=== PATIENT | male | born 1975 | race Caucasian/White ===

== ENCOUNTER → 2016-06-16 | Outpatient (CLI) | payer OTHER ==
--- NOTE | 2016-06-17 14:35 | CR ---
EXAM DATE: 06/16/16 PATIENT'S AGE: 40 Patient: ELIZA JUSTICE Facility: [place], [place] Site . Site : 1975 Study: XRay Shoulder Right [id number]/21/2017 5:11:26 PM Ordering Physician: Quirino Alexandra Final Report: HISTORY: Shoulder pain. Comparison: None. Findings: Moderate degenerative changes in the glenohumeral joint space and mild subacromial joint space narrowing. Degenerative osteophyte changes in the acromioclavicular joint with under hanging osteophytes. No evidence for acute fracture or dislocation. Dictated by Shira Beal MD @ Jun 17 2016 10:39AM (Electronic Signature) Report Signed by Proxy and Original Signed Document filed in the Medical Record. MTDD
--- NOTE | 2016-06-17 14:36 | CR ---
EXAM DATE: 06/16/16 PATIENT'S AGE: 40 Patient: ELIZA JUSTICE Facility: [place], [place] Site . Site : 1975 Study: XRay Spine Lumbar [id number]/21/2017 5:13:45 PM Ordering Physician: Quirino Alexandra Final Report: HISTORY: Back and neck pain. Comparison: None. Findings: Mild multilevel degenerative disc changes. No evidence for acute fracture or dislocation. Soft tissues within normal. Dictated by Shira Beal MD @ Jun 17 2016 10:41AM (Electronic Signature) Report Signed by Proxy and Original Signed Document filed in the Medical Record. [facility]
--- NOTE | 2016-06-17 14:37 | CR ---
EXAM DATE: 06/16/16 PATIENT'S AGE: 40 Patient: ELIZA JUSTICE Facility: [place], [place] Site . Site : 1975 Study: XRay Spine Cervical [id number]/21/2017 5:14:21 PM Ordering Physician: Quirino Alexandra Final Report: HISTORY: Cervical pain. Comparison: None. Findings: Mild multilevel degenerative disc changes in the cervical spine. No evidence for acute fracture or dislocation. Vertebral body and disc space heights are preserved. Soft tissues are within normal. Dictated by Shira Beal MD @ Jun 17 2016 10:42AM (Electronic Signature) Report Signed by Proxy and Original Signed Document filed in the Medical Record. [facility]TDD
== END ==
LOC: MW.CHRC 09:21
PROVIDERS: ATTEND Family Medicine
DX: M25.511 Pain in right shoulder (principal); M54.2 Cervicalgia; R53.83 Other fatigue; Z78.9 Other specified health status
CPT/HCPCS: 72040; 72040-26; 72100; 72100-26; 73030-26-RT; 73030-RT

== ENCOUNTER → 2016-06-23 | Outpatient (CLI) | payer OTHER | LOC: MW.CHRC 07:48 | PROVIDERS: ATTEND Family Medicine | DX: Z72.51 High risk heterosexual behavior (principal) | CPT/HCPCS: 36415; 86592; 87389 ==

== ENCOUNTER 2017-08-05 15:22 | Emergency (ER) | payer OTHER ==
[2017-08-05] MEDS ORDERED: Lidocaine 1% 20 ML MDV INJECT ONE (15:43)
[2017-08-05] MEDS ORDERED: Bupivacaine 0.5% 10 ML SDV INJECT ONE (15:46)
[2017-08-05] MEDS ORDERED: ceFAZolin 1 GM Vial IM ONE (15:46)
--- NOTE | 2017-08-05 15:59 | EDM.PDOC ---
ED HPI GENERAL MEDICAL PROBLEM - General Chief Complaint: Laceration Stated Complaint: LEFT PINKIE FINGER LACERATION Time Seen by Provider: 08/05/17 15:23 Source of Information: Reports: Patient History Limitations: Reports: No Limitations - History of Present Illness INITIAL COMMENTS - FREE TEXT/NARRATIVE: History of present illness: []Patient cut his left small finger on a installer metal flooring prior to arrival. Review of systems: As per history of present illness and below otherwise all systems reviewed and negative. Past medical history: As per history of present illness and as reviewed below otherwise noncontributory. Surgical history: As per history of present illness and as reviewed below otherwise noncontributory. Social history: No reported history of drug or alcohol abuse. Family history: As per history of present illness and as reviewed below otherwise noncontributory. Physical exam: General: Well developed, well nourished in NAD HEENT: Atraumatic, normocephalic, pupils reactive, negative for conjunctival pallor or scleral icterus, mucous membranes moist, throat clear, neck supple, nontender, trachea midline. Lungs: Clear to auscultation, breath sounds equal bilaterally, chest nontender. Heart: S1S2, regular, negative for clicks, rubs, or JVD. Abdomen: Soft, nondistended, nontender. Negative for masses or hepatosplenomegaly. Negative for costovertebral tenderness. Pelvis: Stable nontender. Genitourinary: Deferred. Rectal: Deferred. Extremities: Atraumatic, negative for cords or calf pain. Neurovascular unremarkable. Neuro: Awake, alert, oriented. Cranial nerves II through XII unremarkable. Cerebellum unremarkable. Motor and sensory unremarkable throughout. Exam nonfocal. Diagnostics: []X-ray showing a fracture of proximal fracture of the distal phalanx involving the articular surface Therapeutics: []Ancef given, digital block and sutured laceration Impression: []Open fracture laceration of small left finger Plan: []Keflex, tramadol, follow-up with Dr. Caba in 2 weeks Definitive disposition and diagnosis as appropriate pending reevaluation and review of above. Left 5-Little finger Pain Score (Numeric/FACES): 10 - Related Data Allergies Allergy/AdvReac Type Severity Reaction Status Date / Time Penicillins Allergy Rash Verified 08/05/17 15:56 Home Meds: Home Meds Cephalexin [Keflex] 500 mg PO Q8H #21 cap 08/05/17 [Rx] traMADol HCl [Tramadol HCl] 50 mg PO Q6H PRN #16 tablet 08/05/17 [Rx] ED ROS GENERAL - Review of Systems Review Of Systems: See Below (See history of present illness) ED EXAM, SKIN/RASH Exam: See Below (See history of present illness) ED SKIN PROCEDURES - Laceration/Wound Repair Left Finger Lac/Wound length In cm: 3 Appearance: Subcutaneous Anesthetic Type: Digital Local Anesthesia - Lidocaine (Xylocaine): 1% Plain Local Anesthesia - Bupivicaine (Marcaine): 0.5% Plain Local Anesthetic Volume: 2cc Skin Prep: Chlorhexidine (Hibiciens), Saline Closed with: Sutures Suture Size: 4-0 Drain Placement: No Sterile Dressing Applied: Nurse Tetanus Status Addressed: Yes Complications: No Course - Vital Signs Last Recorded V/S: Last Vital Signs Temp 98.9 F 08/05/17 15:51 Pulse 65 08/05/17 15:51 Resp 22 H 08/05/17 15:51 BP 116/93 H 08/05/17 15:51 Pulse Ox 98 08/05/17 15:51 - Orders/Labs/Meds Orders: Active Orders 24 hr Category Date Time Status Communication Order [RC] STAT Care 08/05/17 16:00 Active Splinting [RC] ASDIRECTED Care 08/05/17 16:35 Active Meds: Medications Discontinued Medications Generic Name Dose Route Start Last Admin Trade Name Freq PRN Reason Stop Dose Admin Bacitracin 1 dose 08/05/17 16:36 08/05/17 16:42 Bacitracin Oint 1 Gm TOP 08/05/17 16:37 1 dose ONETIME ONE Administration Bupivacaine HCl 10 ml 08/05/17 15:46 08/05/17 15:58 Sensorcaine-Mpf 0.5% INJECT 08/05/17 15:47 10 ml ONETIME ONE Administration Cefazolin Sodium 1 gm 08/05/17 15:46 08/05/17 15:53 Ancef IM 08/05/17 15:47 1 gm ONETIME ONE Administration Lidocaine HCl 20 ml 08/05/17 15:43 08/05/17 15:58 Xylocaine 1% INJECT 08/05/17 15:44 20 ml ONETIME ONE Administration Departure - Departure Time of Disposition: 16:51 Disposition: Home, Self-Care 01 Condition: Good Clinical Impression: Open fracture of finger of left hand Qualifiers: Encounter type: initial encounter Finger: little finger Phalanx: distal Fracture alignment: displaced Qualified Code(s): S62.637B - Displaced fracture of distal phalanx of left little finger, initial encounter for open fracture - Discharge Information Prescriptions: Cephalexin [Keflex] 500 mg PO Q8H #21 cap traMADol HCl [Tramadol HCl] 50 mg PO Q6H PRN #16 tablet PRN Reason: Pain Referrals: PCP,None [Primary Care Provider] - Gena Caba MD [Physician] - 2 Weeks () Forms: ED Department Discharge Additional Instructions: The following information is given to patients seen in the emergency department who are being discharged to home. This information is to outline your options for follow-up care. We provide all patients seen in our emergency department with a follow-up referral. The need for follow-up, as well as the timing and circumstances, are variable depending upon the specifics of your emergency department visit. If you don't have a primary care physician on staff, we will provide you with a referral. We always advise you to contact your personal physician following an emergency department visit to inform them of the circumstance of the visit and for follow-up with them and/or the need for any referrals to a consulting specialist. The emergency department will also refer you to a specialist when appropriate. This referral assures that you have the opportunity for follow-up care with a specialist. All of these measure are taken in an effort to provide you with optimal care, which includes your follow-up. Under all circumstances we always encourage you to contact your private physician who remains a resource for coordinating your care. When calling for follow-up care, please make the office aware that this follow-up is from your recent emergency room visit. If for any reason you are refused follow-up, please contact the [facility] Emergency Department at and asked to speak to the emergency department charge nurse. Keep wound dry for 24 hours, wear splint, follow-up with Dr. Caba sutures out in 10-14 days take Keflex as directed and tramadol for pain and also use Motrin or Tylenol or ice. - My Orders Last 24 Hours: My Active Orders 08/05/17 16:00 Communication Order [RC] STAT 08/05/17 16:35 Splinting [RC] ASDIRECTED - Assessment/Plan Last 24 Hours: My Active Orders 08/05/17 16:00 Communication Order [RC] STAT 08/05/17 16:35 Splinting [RC] ASDIRECTED
--- NOTE | 2017-08-05 16:27 | CR ---
EXAMINATION: Right hand, fifth digit HISTORY: Injury COMPARISON: None TECHNIQUE: 3 views FINDINGS/IMPRESSION: There is a comminuted intra-articular fracture distal fifth phalanx extending in to the PIP joint, mildly displaced and angulated. Overlying soft tissue laceration is noted extending to the fracture suggesting an open component. The remaining visualized osseous structures and joint spaces appear intact.
[2017-08-05] MEDS ORDERED: Bacitracin Oint 1 GM U/D Packet TOP ONE (16:36)
== END 2017-08-05 17:08 | disposition home or self-care (01) ==
LOC: MW.ED 15:22
DX: S62.637B Displaced fracture of distal phalanx of left little finger, initial encounter for open fracture (principal); Z88.0 Allergy status to penicillin; Z23 Encounter for immunization; W29.0XXA Contact with powered kitchen appliance, initial encounter
CPT/HCPCS: 12002; 73140; 90471; 99283; J0690

== ENCOUNTER 2018-06-30 12:00 | Emergency (ER) | payer SELFPAY ==
[2018-06-30] MEDS ORDERED: Ibuprofen 800 MG Tab PO ONE (12:13)
[2018-06-30] MEDS ORDERED: Albuterol/Ipratropium 3.0-0.5 MG/3 ML Neb Soln NEB ONE (12:26)
[2018-06-30] MEDS ORDERED: Sodium Chloride 0.9% 1,000 ML IV ONE (12:27)
[2018-06-30] MEDS ORDERED: Ketorolac 30 MG/ML SDV IVPUSH ONE (12:27)
--- NOTE | 2018-06-30 13:00 | EDM.PDOC ---
ED HPI GENERAL MEDICAL PROBLEM - General Chief Complaint: General Stated Complaint: RUSHED TO THE BACK Time Seen by Provider: 06/30/18 12:01 Source of Information: Reports: Patient History Limitations: Reports: No Limitations - History of Present Illness INITIAL COMMENTS - FREE TEXT/NARRATIVE: History of present illness: []Patient started feeling ill last night with body aches, fevers, chills, sore throat, congestion, weakness and low back pain. Review of systems: As per history of present illness and below otherwise all systems reviewed and negative. Past medical history: As per history of present illness and as reviewed below otherwise noncontributory. Surgical history: As per history of present illness and as reviewed below otherwise noncontributory. Social history: No reported history of drug or alcohol abuse. Family history: As per history of present illness and as reviewed below otherwise noncontributory. Physical exam: General: Well developed, well nourished in NAD HEENT: Atraumatic, normocephalic, pupils reactive, negative for conjunctival pallor or scleral icterus, mucous membranes moist, throat clear, neck supple, nontender, trachea midline. Lungs: Basilar rhonchi equal bilaterally, chest nontender. Faint expiratory wheezing no chest wall retractions or respiratory distress Heart: S1S2, regular, negative for clicks, rubs, or JVD. Abdomen: NABS, Soft, nondistended, nontender. Negative for masses or hepatosplenomegaly. Negative for costovertebral tenderness. Pelvis: Stable nontender. Genitourinary: Deferred. Rectal: Deferred. Extremities: Atraumatic, negative for cords or calf pain. Neurovascular unremarkable. Neuro: Awake, alert, oriented. Cranial nerves II through XII unremarkable. Cerebellum unremarkable. Motor and sensory unremarkable throughout. Exam nonfocal. Skin:warm and dry Diagnostics: Influenza positive, CBC, chemistry, chest x-ray, lactate Therapeutics: DuoNeb, Toradol, Zofran IV fluids ED Course: Proved Impression: Influenza A Prescriptions: Albuterol, diclofenac Plan: Increase fluids follow-up with primary care return if symptoms worsen or change. Definitive disposition and diagnosis as appropriate pending reevaluation and review of above. Back Pain Score (Numeric/FACES): 10 - Related Data Allergies Allergy/AdvReac Type Severity Reaction Status Date / Time Penicillins Allergy Rash Verified 06/30/18 12:04 Home Meds: Home Meds Albuterol [Ventolin HFA] 2 puff INH Q4HR PRN #1 inhaler 06/30/18 [Rx] Diclofenac Sodium [Voltaren] 75 mg PO BIDMEALS PRN #20 tab.cr 06/30/18 [Rx] Past Medical History - Past Health History Medical/Surgical History: Denies Medical/Surgical History - Infectious Disease History Infectious Disease History: Reports: Chicken Pox Social & Family History - Family History Family Medical History: Noncontributory - Tobacco Use Smoking Status *Q: Current Every Day Smoker Years of Tobacco use: 25 Packs/Tins Daily: 1 - Caffeine Use Caffeine Use: Reports: Coffee - Alcohol Use Days Per Week of Alcohol Use: 7 Number of Drinks Per Day: 8 Total Drinks Per Week: 56 - Recreational Drug Use Recreational Drug Use: Yes Recreational Drug Type: Reports: Marijuana/Hashish ED ROS GENERAL - Review of Systems Review Of Systems: ROS reveals no pertinent complaints other than HPI. ED EXAM, GENERAL - Physical Exam Exam: See Below (See history of present illness) Course - Vital Signs Last Recorded V/S: Last Vital Signs Temp 102.0 F H 06/30/18 12:42 Pulse 107 H 06/30/18 12:42 Resp 15 06/30/18 12:42 BP 114/69 06/30/18 12:42 Pulse Ox 95 06/30/18 12:42 - Orders/Labs/Meds Orders: Active Orders 24 hr Category Date Time Status RT Aerosol Therapy [RC] ASDIRECTED Care 06/30/18 12:27 Active Sodium Chloride 0.9% [Normal Saline] 1,000 ml Med 06/30/18 12:27 Active IV .Bolus Medication Orders Sodium Chloride (Normal Saline) 1,000 mls @ 999 mls/hr IV .Bolus ONE Stop: 06/30/18 13:27 Last Admin: 06/30/18 12:29 Dose: 999 mls/hr Labs: Laboratory Tests 06/30/18 06/30/18 06/30/18 Range/Units 12:00 12:00 12:00 WBC 6.39 (4.0-11.0) K/uL RBC 4.55 (4.50-5.90) M/uL Hgb 15.0 (13.0-17.0) g/dL Hct 42.6 (38.0-50.0) % MCV 93.6 (80.0-98.0) fL MCH 33.0 H (27.0-32.0) pg MCHC 35.2 (31.0-37.0) g/dL RDW Std Deviation 45.6 (28.0-62.0) fl RDW Coeff of Allyson 13 (11.0-15.0) % Plt Count 163 (150-400) K/uL MPV 9.60 (7.40-12.00) fL Neut % (Auto) 70.4 (48.0-80.0) % Lymph % (Auto) 11.1 L (16.0-40.0) % [place] % (Auto) 14.9 (0.0-15.0) % Eos % (Auto) 3.0 (0.0-7.0) % Baso % (Auto) 0.6 (0.0-1.5) % Neut # (Auto) 4.5 (1.4-5.7) K/uL Lymph # (Auto) 0.7 (0.6-2.4) K/uL [place] # (Auto) 1.0 H (0.0-0.8) K/uL Eos # (Auto) 0.2 (0.0-0.7) K/uL Baso # (Auto) 0.0 (0.0-0.1) K/uL Nucleated RBC % 0.0 /100WBC Nucleated RBCs # 0 K/uL Lactate 1.3 (0.20-2.00) mmol/L Sodium 137 (136-148) mmol/L Potassium 3.6 (3.5-5.1) mmol/L Chloride 102 (98-107) mmol/L Carbon Dioxide 23.3 (21.0-32.0) mmol/L BUN 8 (7.0-18.0) mg/dL Creatinine 1.0 (0.8-1.3) mg/dL Est Cr Clr Drug Dosing 113.03 mL/min Estimated GFR (MDRD) > 60.0 ml/min Glucose 100 (74-106) mg/dL Calcium 8.6 (8.5-10.1) mg/dL Total Bilirubin 0.5 (0.2-1.0) mg/dL AST 15 (15-37) IU/L ALT 26 (14-63) IU/L Alkaline Phosphatase 44 L (46-116) U/L Total Protein 7.2 (6.4-8.2) g/dL Albumin 4.0 (3.4-5.0) g/dL Globulin 3.2 (2.6-4.0) g/dL Albumin/Globulin Ratio 1.3 (0.9-1.6) Meds: Medications Generic Name Dose Route Start Last Admin Trade Name Freq PRN Reason Stop Dose Admin Sodium Chloride 1,000 mls @ 999 mls/hr 06/30/18 12:27 06/30/18 12:29 Normal Saline IV 06/30/18 13:27 999 mls/hr .Bolus ONE Administration Discontinued Medications Generic Name Dose Route Start Last Admin Trade Name Freq PRN Reason Stop Dose Admin Albuterol/Ipratropium 3 ml 06/30/18 12:26 06/30/18 12:30 Duoneb 3.0-0.5 Mg/3 Ml NEB 06/30/18 12:27 3 ml ONETIME ONE Administration Ibuprofen 800 mg 06/30/18 12:13 06/30/18 12:19 Motrin PO 06/30/18 12:14 800 mg ONETIME ONE Administration Ketorolac Tromethamine 30 mg 06/30/18 12:27 06/30/18 12:31 Toradol IVPUSH 06/30/18 12:28 30 mg ONETIME ONE Administration Departure - Departure Time of Disposition: 13:28 Disposition: Home, Self-Care 01 Condition: Good Clinical Impression: Influenza A - Discharge Information *PRESCRIPTION DRUG MONITORING PROGRAM REVIEWED*: No *COPY OF PRESCRIPTION DRUG MONITORING REPORT IN PATIENT JOSSIE: No Prescriptions: Albuterol [Ventolin HFA] 2 puff INH Q4HR PRN #1 inhaler PRN Reason: Shortness Of Breath Diclofenac Sodium [Voltaren] 75 mg PO BIDMEALS PRN #20 tab.cr PRN Reason: Pain Referrals: PCP,Unknown [Primary Care Provider] - Forms: ED Department Discharge Additional Instructions: The following information is given to patients seen in the emergency department who are being discharged to home. This information is to outline your options for follow-up care. We provide all patients seen in our emergency department with a follow-up referral. The need for follow-up, as well as the timing and circumstances, are variable depending upon the specifics of your emergency department visit. If you don't have a primary care physician on staff, we will provide you with a referral. We always advise you to contact your personal physician following an emergency department visit to inform them of the circumstance of the visit and for follow-up with them and/or the need for any referrals to a consulting specialist. The emergency department will also refer you to a specialist when appropriate. This referral assures that you have the opportunity for follow-up care with a specialist. All of these measure are taken in an effort to provide you with optimal care, which includes your follow-up. Under all circumstances we always encourage you to contact your private physician who remains a resource for coordinating your care. When calling for follow-up care, please make the office aware that this follow-up is from your recent emergency room visit. If for any reason you are refused follow-up, please contact the [facility] Emergency Department at and asked to speak to the emergency department charge nurse. Take meds as directed, follow up with your primary care physician, return to ER if symptoms worsen or change. [facility] [address] [place] [address] - My Orders Last 24 Hours: My Active Orders 06/30/18 12:27 RT Aerosol Therapy [RC] ASDIRECTED Sodium Chloride 0.9% [Normal Saline] 1,000 ml IV .Bolus - Assessment/Plan Last 24 Hours: My Active Orders 06/30/18 12:27 RT Aerosol Therapy [RC] ASDIRECTED Sodium Chloride 0.9% [Normal Saline] 1,000 ml IV .Bolus
--- NOTE | 2018-06-30 13:01 | CR ---
INDICATION: Shortness of breath TECHNIQUE: Chest 1 view COMPARISON: None FINDINGS: Cardiovascular and mediastinum: Heart size and vasculature are normal in caliber and appearance. Lungs and pleural spaces: Lungs are clear. No sign of infiltrate or mass. No sign of pleural effusion. No pneumothorax. Bones and soft tissues: No significant findings. IMPRESSION: No acute or significant findings. Dictated by Petar Sales MD @ Jun 30 2018 12:58PM Signed by Dr. Petar Sales @ Jun 30 2018 12:59PM
[2018-06-30 13:12] LABS: CHLORIDE,CL 102 mmol/L (98-107); SODIUM,NA 137 mmol/L (136-148)
== END 2018-06-30 13:35 | disposition home or self-care (01) ==
LOC: MW.ED 12:00
DX: J10.1 Influenza due to other identified influenza virus with other respiratory manifestations (principal); F17.210 Nicotine dependence, cigarettes, uncomplicated; Z88.0 Allergy status to penicillin
CPT/HCPCS: 71045; 80053; 83605; 85025; 87804; 94640; 96361; 96374; 99284; A9270; J1885; J7040; J7620-GY